=== PATIENT | male | born 1985 | race Caucasian/White ===

== ENCOUNTER 2023-02-18 20:46 | Emergency (ER) | payer BC ==
[~2023-02-18] VITALS: Ht 170.2 cm; Wt 70.3 kg
[2023-02-18 21:05] VITALS: BP_SYST 113; PULSE 84; O2SAT 98
--- NOTE | 2023-02-18 21:40 | NUR ---
Patient to ER [facility] for evaluation. Side rails up. Report given to MITRA AIKEN(REG).
--- NOTE | 2023-02-18 22:42 | NUR ---
Pt c/o of left ankle injury 2 hours ago while playing tennis. Pt states he felt a pop in his ankle. Does not c/o pain. Pt ambulatory, a/o x 4.
--- NOTE | 2023-02-18 23:03 | NUR ---
Patient given written and verbal discharge instructions and verbalizes understanding. ER MD discussed with patient the results and treatment provided. Patient in stable condition. ID arm band removed. Patient educated on pain management and to follow up with PMD. Pain Scale 0/10. Opportunity for questions provided and answered.
== END 2023-02-18 23:01 | disposition home or self-care (01) ==
LOC: SED 20:46
DX: S86.012A Strain of left Achilles tendon, initial encounter (principal); Z79.899 Other long term (current) drug therapy; W21.12XA Struck by tennis racquet, initial encounter; Y93.73 Activity, racquet and hand sports; Y92.89 Other specified places as the place of occurrence of the external cause; Y99.8 Other external cause status
CPT/HCPCS: 99283